=== PATIENT | male | born 1995 | race Caucasian/White ===

== ENCOUNTER 2018-01-02 16:19 | Emergency (ER) | payer BC ==
[2018-01-02 16:40] VITALS: BP 146/91
--- NOTE | 2018-01-02 16:41 | UC ---
Throat Pain/Nasal Cristopher HPI - HPI Summary HPI Summary: 22 yo male presents with sore throat. He tells me that about 5 days ago he developed a sore throat, fever, fatigue, and body aches. He took tylenol and ibuprofen and his symptoms resolved in a day or two, but his sore throat has persisted. He has had strep in the past and is concerned he has this again. He is eating and drinking well. - History of Current Complaint Chief Complaint: UCGeneralIllness Stated Complaint: ST,FEVER Time Seen by Provider: 01/02/18 16:41 Hx Obtained From: Patient Onset/Duration: Gradual Onset Pain Intensity: 0 - Allergies/Home Medications Allergies/Adverse Reactions: Allergies Allergy/AdvReac Type Severity Reaction Status Date / Time clavulanic acid AdvReac Diarrhea Verified 01/02/18 16:35 Home Medications: Home Medications Ibuprofen TAB* [Advil TAB*] 800 mg PO Q8H PRN 01/02/18 [History Confirmed ] PMH/Surg Hx/FS Hx/Imm Hx - Additional Past Medical History Additional PMH: None - Surgical History Surgical History: None - Family History Known Family History: Positive: None - Social History Occupation: Employed Full-time Lives: With Family Alcohol Use: Weekly Substance Use Type: Marijuana Substance Use Comment - Amount & Last Used: "couple times a week" Smoking Status (MU): Light Every Day Tobacco Smoker Amount Used/How Often: 1/4 PPD Length of Time of Smoking/Using Tobacco: Since Age 15 Review of Systems All Other Systems Reviewed And Are Negative: Yes Constitutional: Positive: Negative Skin: Positive: Negative Eyes: Positive: Negative ENT: Positive: Sore Throat Respiratory: Positive: Negative Cardiovascular: Positive: Negative Gastrointestinal: Positive: Negative Neurovascular: Positive: Negative Neurological: Positive: Negative Psychological: Positive: Negative Physical Exam - Summary Physical Exam Summary: GENERAL: NAD. WDWN. No pain distress. SKIN: No rashes, sores, lesions, or open wounds. HEENT: Head: AT/NC Eyes: Conjunctiva clear without inflammation or discharge. Ears: Hearing grossly normal. TMs intact, no bulging, erythema, or edema. Nose: Nasal mucosa pink and moist. NTTP maxillary and frontal sinus. Throat: Posterior oropharynx mild erythema and 2+ tonsillar enlargement. Scant exudates. Uvula midline. No hoarse voice or muffled voice. NECK: Supple. Nontender. No lymphadenopathy. CHEST: CTAB. No r/r/w. No accessory muscle use. Breathing comfortably and in no distress. CV: RRR. Without m/r/g. Pulses intact. Cap refill <2seconds NEURO: Alert. PSYCH: Age appropriate behavior. Triage Information Reviewed: Yes Vital Signs: Initial Vital Signs Temp 98.3 F 01/02/18 16:34 Pulse 78 01/02/18 16:34 Resp 16 01/02/18 16:34 BP 146/91 01/02/18 16:34 Pulse Ox 99 01/02/18 16:34 Laboratory Tests 01/02/18 16:45 Group A Strep Rapid Negative Vital Signs Reviewed: Yes Throat Pain/Nasal Course/Dx - Course Course Of Treatment: POC strep negative. Suspect viral pharyngitis. Advised to continue tylenol/ibuprofen and may do tea with honey/warm salt water gargles. F/ u if symptoms worsen or persist. - Differential Dx/Diagnosis Provider Diagnoses: Pharyngitis Discharge - Sign-Out/Discharge Documenting (check all that apply): Patient Departure All imaging exams completed and their final reports reviewed: No Studies - Discharge Plan Condition: Stable Disposition: HOME Patient Education Materials: Pharyngitis (ED) Referrals: Jose Jin MD [Primary Care Provider] - Additional Instructions: If you develop a fever, shortness of breath, chest pain, new or worsening symptoms - please call your PCP or go to the ED. Your blood pressure was high at todays visit. Please see your primary provider within 4 weeks for recheck and re-evaluation. - Billing Disposition and Condition Condition: STABLE Disposition: Home
== END 2018-01-02 17:01 | disposition home or self-care (01) ==
LOC: UCCORT 16:19
DX: J02.9 Acute pharyngitis, unspecified (principal); R53.83 Other fatigue; R50.9 Fever, unspecified; F17.210 Nicotine dependence, cigarettes, uncomplicated; Z88.8 Allergy status to other drugs, medicaments and biological substances
CPT/HCPCS: 87651; 99211; G0463